=== PATIENT | female | born 1955 | race Caucasian/White ===

== ENCOUNTER → 2022-10-18 | Outpatient (CLI) | payer MEDICARE, OTHER ==
--- NOTE | 2022-10-18 18:52 | US ---
EXAMINATION TYPE: US venous doppler duplex UE LT DATE OF EXAM: 10/18/2022 COMPARISON: NONE CLINICAL INDICATION: Female, 67 years old with history of R60.0 LOCALIZED EDEMA; Left elbow edema x 3 days. Pt had a PICC line from September 03-September 28 2022. On baby aspirin SIDE PERFORMED: Left Left Arm: No evidence for DVT. There does appear to be echoes in a vein near the left lateral elbow. IMPRESSION: 1. No evidence for deep vein thrombosis of the left upper extremity. 2. Superficial thrombophlebitis of a vessel marked by director financial systems near the area of the lump. Likely correlating to PICC line access site.
== END | disposition home or self-care (01) ==
LOC: RADUSWWP 16:53
PROVIDERS: ATTEND Family Medicine
DX: I80.8 Phlebitis and thrombophlebitis of other sites (principal); R60.0 Localized edema